=== PATIENT | female | born 1975 | race Caucasian/White ===

== ENCOUNTER 2020-09-07 09:37 | Emergency (ER) | payer OTHER ==
[~2020-09-07] VITALS: Ht 160 cm; Wt 80.9 kg
[2020-09-07] MEDS ORDERED: ACETAMINOPHEN 500 MG TABLET PO ONE (10:00)
[2020-09-07] MEDS ORDERED: CYCLOBENZAPRINE 10 MG TABLET. PO ONE (10:00)
--- NOTE | 2020-09-07 10:05 | PHYS DOC ---
Past History Past Medical History: GERD Past Surgical History: Other Additional Past Surgical Histo: SPINAL FUSION C5-C6 LAST NOVEMBER; LEG Alcohol Use: Occasionally Adult General Chief Complaint Chief Complaint: BACK PAIN OR INJURY HPI HPI Patient is 44-year-old female presenting for back pain. States she suffered a mechanical fall after tripping over her household animal toy, fell backwards landing on her right hip and subsequently fell on outstretched right hand. Patient reports focal right hip and lower back pain since onset with difficulty walking but admits she is ambulating. Patient took 800 mg ibuprofen prior to event no other medications for pain today. Outside of recent mechanical fall, only known spinal issue is recent cervical fusion surgery. No other concerning red flag symptoms of back pain such as pain greater than 6 weeks, age, IV drug use history, history of cancer, neurologic symptoms such as paresthesias, saddle anesthesia and/or weakness, no changes in bladder or bowel function or incontinence, no anticoagulant use or known coagulopathies. Review of Systems Review of Systems Fourteen body systems of review of systems have been reviewed. See HPI for pertinent positives and negative responses, other melgoza all other systems are negative, non-pertinent or non-contributory Current Medications Current Medications Current Medications Medications (Trade) Dose Ordered Sig/Vinicio Start Time Stop Time Status Last Admin Dose Admin Acetaminophen (Tylenol) 1,000 mg 1X ONCE 09/07/20 10:00 09/07/20 10:01 UNV Cyclobenzaprine HCl (Flexeril) 10 mg 1X ONCE 09/07/20 10:00 09/07/20 10:01 UNV Allergies Allergies Allergies Coded Allergies Type Severity Reaction Last Updated Verified Iodinated Contrast Media Allergy Intermediate 09/07/20 Yes Sulfa (Sulfonamide Antibiotics) Allergy Unknown 09/07/20 Yes amoxicillin Allergy Unknown 09/07/20 Yes Physical Exam Physical Exam Constitutional: Pt is oriented to person, place, and time. Pt appears well-developed and well- nourished. HEENT: Head: Normocephalic and atraumatic. External ears unremarkable, negative nunez sign Conjunctivae and EOM are normal. Pupils are equal, round, and reactive to light. Oropharynx is clear and moist. No hematomas or lacerations or abrasions to face or scalp OP clear, no blood, no malocclusion, dentition intact Nares clear, no nasal septal hematoma Midface stable Neck: C-spine midline nontender, no step-offs Cardiovascular: Normal rate, regular rhythm and normal heart sounds. Pulmonary/Chest: Effort normal and breath sounds normal. No respiratory distress. No wheezes. CTA bilaterally Abdominal: Soft. Bowel sounds are normal. Pt exhibits no distension. There is no tenderness. Musculoskeletal: No bony tenderness to extremities, no deformities, full ROM extremities Chest wall stable Pelvis stable and tender to palpation of right hip without any focal abnormalities apparent Straight leg raise positive on right. Patient pointing to medial portion of right gluteal muscle as focal portion of pain with mild radiation into right posterior thigh and right upper back No vertebral TTP and spine without stepoffs Neurological: Pt is alert and oriented to person, place, and time. Moving all extremities willfully, able to wiggle all fingers and toes Alert and oriented x 3 Sensation grossly intact Skin: Skin is warm and dry. No abrasions, no lacerations Psychiatric: Behavior is appropriate for situation Current Patient Data Vital Signs Vital Signs Date Time Temp Pulse Resp B/P (MAP) Pulse Ox O2 Delivery O2 Flow Rate FiO2 09/07/20 09:48 98.0 91 24 114/87 (96) 98 Room Air EKG EKG [] Radiology/Procedures Radiology/Procedures EXAM: XR SACRUM AND COCCYX 2+VIEWS, XR BILATERAL HIP (WITH OR WITHOUT PELVIS) 2 VIEWS_RIGHT 09/07/2020 10:03 AM CLINICAL INDICATION: Fall today, severe right hip and lower back pain, pelvic pain COMPARISON: None TECHNIQUE: 3 views of the sacrum, one view of the pelvis and 2 views of the right hip FINDINGS: Sacrum: No acute fracture. Sacral iliac joints are normal. Visualized portion of the lower lumbar spine is unremarkable. Right hip: No acute fracture. Hip joint spaces are maintained. Pubic symphysis is unremarkable. There are few calcifications in the right abductor tendons at the greater trochanter. IMPRESSION: 1. No acute fracture of the sacrum. 2. No acute fracture of the right hip or pelvis. 3. A few calcifications in the right abductor tendons. Electronically signed by: Monisha Lockhart MD (09/07/2020 10:30 AM) [id number] Heart Score HEART Score for Chest Pain: HEART Score for Chest Pain Response (Comments) Value History Slighlty/Non-Suspicious 0 Age < 45 0 Risk Factors 1 or 2 Risk Factors 1 Total 1 Risk Factors: Risk Factors: DM, Current or recent (<one month) smoker, HTN, HLP, family history of CAD, obesity. Risk Scores: Risk Factors: DM, Current or recent (<one month) smoker, HTN, HLP, family history of CAD, obesity. Course & Med Decision Making Course & Med Decision Making Pertinent Labs and Imaging studies reviewed. (See chart for details) Discussed no bony abnormalities. Most likely dx self-limiting msk insult such as sciatica vs lower lumbar strain Exercises, NSAIDs/tylenol and other supportive care practices advised with close PCP follow-up and consideration for PT referral SRP disussed with good understanding by patient, all questions and concerns addressed prior to departure in well-appearing, ambulatory patient without red flag signs of back pain Dragon Disclaimer Dragon Disclaimer This electronic medical record was generated, in whole or in part, using a voice recognition dictation system. Departure Departure: Impression: Primary Impression: Lower back pain Disposition: 01 DC HOME SELF CARE/HOMELESS Condition: STABLE Referrals: MALDONADO GARDNER (PCP) Patient Instructions: Back Pain, Adult, Low Back Strain with Rehab-SportsMed Additional Instructions: You were evaluated in the Emergency Department today for back pain. Your evaluation suggests no acute abnormalities which require further intervention at this time. Your pain is most likely due to to a musculoskeletal cause that should improve with supportive care. - Move around as tolerated but avoiding heavy lifting. ``Bed rest is not recommended nor is it the best treatment for low back pain. - Medications will help control your discomfort: - -Ibuprofen (800 mg every 8 hours for pain) with food. - -Tylenol - Do not drink alcohol, drive a car, operate machinery, or get up on ladders or heights when taking any prescribed pain medications. - Do not drive home if you received prescribed pain medications here in the ED. Return to the ED immediately if you develop any of the following problems: - Leaking urine or difficulty urinating; - Inability to control your bowels; - New numbness or weakness in your legs or numbness between your legs; - Inability to walk - Fever JACQUELIN LOUIS DO Sep 07, 2020 10:05
--- NOTE | 2020-09-07 10:33 | RAD ---
EXAM: XR SACRUM AND COCCYX 2+VIEWS, XR BILATERAL HIP (WITH OR WITHOUT PELVIS) 2 VIEWS_RIGHT 09/07/20 10:03 AM CLINICAL INDICATION: Fall today, severe right hip and lower back pain, pelvic pain COMPARISON: None TECHNIQUE: 3 views of the sacrum, one view of the pelvis and 2 views of the right hip FINDINGS: Sacrum: No acute fracture. Sacral iliac joints are normal. Visualized portion of the lower lumbar spi ne is unremarkable. Right hip: No acute fracture. Hip joint spaces are maintained. Pubic symphysis is unremarkable. There are few calcifications in the right abductor tendons at the greater trochanter. IMPRESSION: 1. No acute fracture of the sacrum. 2. No acute fracture of the right hip or pelvis. 3. A few calcifications in the right abductor tendons. Electronically signed by: Monisha Lockhart MD (09/07/2020 10:30 AM) [id number]
[2020-09-07 10:56] VITALS: BP 115/66
== END 2020-09-07 10:56 | disposition home or self-care (01) ==
LOC: ER 09:37
DX: M54.5 Low back pain (principal); M25.551 Pain in right hip; K21.9 Gastro-esophageal reflux disease without esophagitis; Z98.890 Other specified postprocedural states; Z88.1 Allergy status to other antibiotic agents; Z88.2 Allergy status to sulfonamides; Z91.040 Latex allergy status
CPT/HCPCS: 72220; 73502; 99284